=== PATIENT | female | born 1945 | race Caucasian/White ===

== ENCOUNTER → 2016-06-29 | Outpatient (CLI) | payer MEDICARE, OTHER | END | disposition home or self-care (01) | LOC: LAB.O 13:23 | PROVIDERS: ATTEND Family Medicine | DX: E03.9 Hypothyroidism, unspecified (principal) ==

== ENCOUNTER → 2016-08-13 | Outpatient (CLI) | payer MEDICARE, OTHER ==
--- NOTE | 2016-08-13 09:54 | RAD ---
EXAM DESCRIPTION: Shoulder,Right 2 or More Views CLINICAL HISTORY: 70 years Female, PAIN COMPARISON: None. FINDINGS: 4 views of the right shoulder show no acute fracture or malalignment. Mild to moderate degenerative changes are noted in the right AC joint including slight undersurface spurring. The glenohumeral joint space is fairly well-maintained. 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 Electronically signed by: Az Chappell MD 08/13/2016 9:53 AM CDT
== END | disposition home or self-care (01) ==
LOC: RAD 08:13
PROVIDERS: ATTEND Orthopaedic Surgery
DX: M19.011 Primary osteoarthritis, right shoulder (principal)

== ENCOUNTER → 2016-08-17 | Outpatient (CLI) | payer MEDICARE, OTHER ==
--- NOTE | 2016-08-18 12:57 | US ---
Procedure: US UPPER EXTREMITY VEINS LIMITED/UNILATERAL/FOLLOW UP Exam Date: 08/17/2016 12:00 AM CDT Ordering Provider: DMITRIY MENDOZA Clinical Indication: Right arm pain and swelling Comparison: None Findings: Duplex analysis as well as graded compression sonography was performed to evaluate the deep and superficial veins of the right upper extremity. Additionally, Doppler analysis of the internal jugular and subclavian veins was also performed. The internal jugular vein is patent. The visualized portions of the subclavian vein are patent. The axillary vein is patent. The brachial vein is patent. The radial vein is patent. The ulnar vein is patent. The superficial veins of the right arm were also evaluated. The basilic vein is patent. The cephalic vein is patent Impression: 1. No evidence of thrombus involving the right internal jugular vein or deep veins of the right upper extremity. 2. No evidence of thrombus involving the superficial veins of the right upper extremity. Electronically signed by: Blaise Wells MD 08/18/2016 12:56 PM CDT
== END ==
LOC: US 10:11
PROVIDERS: ATTEND Orthopaedic Surgery
DX: M79.601 Pain in right arm (principal); E11.9 Type 2 diabetes mellitus without complications; I10 Essential (primary) hypertension; E03.9 Hypothyroidism, unspecified; E78.5 Hyperlipidemia, unspecified

== ENCOUNTER → 2017-01-07 | Outpatient (CLI) | payer MEDICARE, OTHER | END | disposition home or self-care (01) | LOC: LAB.O 10:12 | PROVIDERS: ATTEND Family Medicine | DX: E78.5 Hyperlipidemia, unspecified (principal); E11.9 Type 2 diabetes mellitus without complications; E03.9 Hypothyroidism, unspecified; R53.81 Other malaise; I10 Essential (primary) hypertension ==

== ENCOUNTER → 2017-04-22 | Outpatient (CLI) | payer MEDICARE, OTHER | END | disposition home or self-care (01) | LOC: LAB.O 10:13 | PROVIDERS: ATTEND Family Medicine | DX: E11.9 Type 2 diabetes mellitus without complications (principal) ==

== ENCOUNTER → 2017-06-04 | Outpatient (CLI) | payer MEDICARE, OTHER | END | disposition home or self-care (01) | LOC: MAMMO 10:30 | PROVIDERS: ATTEND Family Medicine | DX: Z12.31 Encounter for screening mammogram for malignant neoplasm of breast (principal) ==

== ENCOUNTER → 2017-12-24 | Outpatient (CLI) | payer MEDICARE, OTHER | LOC: LAB.O 11:43 | PROVIDERS: ATTEND Family Medicine | DX: I10 Essential (primary) hypertension (principal); E03.9 Hypothyroidism, unspecified; E78.5 Hyperlipidemia, unspecified; E11.9 Type 2 diabetes mellitus without complications ==

== ENCOUNTER → 2018-04-14 | Outpatient (CLI) | payer MEDICARE, OTHER | LOC: LAB.O 10:50 | PROVIDERS: ATTEND Family Medicine | DX: E03.9 Hypothyroidism, unspecified (principal) ==

== ENCOUNTER → 2018-06-30 | Outpatient (CLI) | payer MEDICARE, OTHER | LOC: LAB.O 10:48 | PROVIDERS: ATTEND Family Medicine | DX: I10 Essential (primary) hypertension (principal); R60.9 Edema, unspecified; E11.9 Type 2 diabetes mellitus without complications; E03.9 Hypothyroidism, unspecified; E78.5 Hyperlipidemia, unspecified ==